=== PATIENT | female | born 1930 | race African-American/Black ===

== ENCOUNTER → 2017-07-07 | Outpatient (CLI) | payer OTHER, BC ==
[~2017-07-07] MED LIST: ADULT LOW DOSE81 MG PO; COUMADIN 2 MG TA2 M1 PO; FISH OIL 1,2001 EAC4 PO; FISHOIL; FOSAMAX 10 MG10 MG PO; FOSAMAX 70 MG T70 M1 PO; GABAPENTIN100 MG PO; GLUCOPHAGE1000 MG PO; HYDROCODONE-AP1 EA11 PO; HYDROCODONE-AP1 EAC6 PO; KLOR-CON 1010 MEQ PO; LASIX 20 MG TAB20 MG PO; LISINOPRIL10 MG PO; LISINOPRIL5 MG PO; LOPRESSOR25 PO; MACROBID 100 M100 M1 PO; METFORMIN; MIRALAX255 GM; NOLVADEX20 MG PO; NORCO 5-325 TA1 EACH PO; NORVASC 5 MG TAB5 MG PO; OXYCODONE HCL5 M1 PO; PERCOCET; PERCOCET 5-3251 EACH PO; POTASSIUM CL 225 MEQ PO; POTASSIUM20 PO; ROBAXIN 750 MG750 M1 PO
== END ==
LOC: RAD 15:43
DX: I51.7 Cardiomegaly (principal); J98.11 Atelectasis

== ENCOUNTER → 2017-12-01 | Outpatient (CLI) | payer OTHER, BC ==
[~2017-12-01] MED LIST changes: +BREO ELLIPTA 21 EACH INH; +DICLOFENAC POTA50 MG PO; +NEURONTIN300 MG PO; +TYLENOL EXTRA500 MG PO; +VITAMIN D1000 UNI1 PO
== END ==
LOC: CAT 09:50
DX: J45.30 Mild persistent asthma, uncomplicated (principal); I25.10 Atherosclerotic heart disease of native coronary artery without angina pectoris; J47.9 Bronchiectasis, uncomplicated; R91.8 Other nonspecific abnormal finding of lung field; J84.10 Pulmonary fibrosis, unspecified; J98.4 Other disorders of lung

== ENCOUNTER → 2018-03-24 | Outpatient (CLI) | payer OTHER, BC ==
[~2018-03-24] VITALS: Ht 157.5 cm; Wt 74.4 kg
[~2018-03-24] MED LIST changes: -DICLOFENAC POTA50 MG PO; -TYLENOL EXTRA500 MG PO
--- NOTE | ~2018-03-24 | HPC ---
[facility] [place] [address] PAIN MANAGEMENT CONSULTATION Name: RICHIE HINTON [facility] [id number] Admission: 03/24/18 Attend Phys: Erasto Baker DO Discharge: Date of : [birth year] Report #: [id number] THIS REPORT FOR: //name// CC: Erasto Dow MD DATE OF SERVICE: 03/24/2018 REFERRING PHYSICIAN: Diego Dow MD CHIEF COMPLAINT: Low back pain, bilateral lower extremity pain with paresthesias. HISTORY OF PRESENT ILLNESS: As you know, the patient is a very pleasant 87-year-old female who has had a longstanding history of low back pain, bilateral lower extremity pain with paresthesias. The patient states pain began in 2015 and has progressively worsened. The patient states that she is "just been putting up with it." The patient states over a period of time her pain become intense enough that she discussed options of treatment with Dr. Dow, her primary care physician. The patient trialed conservative medical therapy, but was noting no improvement in symptoms. She was subsequently sent for MRI of the lumbar spine, which showed severe spinal stenosis at L3-L4 and multiple changes throughout the lumbar spine typical for a 87-year-old female. Due to the lack of improvement with conservative treatment, the patient was referred to our clinic to discuss options for more aggressive therapy such as epidural injections and more aggressive medication treatment options. The patient denies any specific injury or trauma that may have led to symptom development and progression. The patient today describes pain as periodic, she uses descriptors of aching, pulling, throbbing, numbness and tingling. She places current pain score 9/10, daily average at 10/10, the worst pain has been is 10/10. The patient states that certain activities exacerbates symptoms, but not consistently. She indicates pain improvement with nothing to date. She has been referred to our service to discuss treatment options for lumbar radicular symptoms involving mainly the right lower extremity, but intermittently on the left. PAST MEDICAL HISTORY: 1. Diabetes mellitus type 2. 2. Hypertension. 3. Hypokalemia. 4. Asthma. 5. Breast cancer. 6. Osteoarthritis. [facility] [address] [place] [address] PAIN MANAGEMENT CONSULTATION Name: RICHIE HINTON Room #: REG [facility]#: [id number] Admission: 03/24/18 Attend Phys: Erasto Baker DO Discharge: Date of : [birth year] Report #: [id number] PAST SURGICAL HISTORY: 1. Mastectomy. 2. Right knee surgery. 3. Polypectomies from the colon. SOCIAL HISTORY: The patient denies tobacco, alcohol, IV or illicit drug use. She has been retired over 20 years. She is unaccompanied at today's visit. REVIEW OF SYSTEMS: Positive for wearing corrective eyewear, shortness of breath with walking or lying flat, frequent and recurrent coughs, asthma, wheezing, painful urination, nocturia, incontinence and dribbling to urine, low back pain, right lower extremity pain with paresthesias, intermittent left lower extremity pain with paresthesias, lymphedema of the left upper extremity, breast cancer, hypertension, seasonal allergies, asthma. All other review of systems negative per 12-point review of systems other than those listed in history of present illness. PAIN IMPACT SCORE: 32/70 indicating moderate interference of daily activities secondary to pain. ALLERGIES: No known drug allergies. CURRENT MEDICATIONS: Cholecalciferol 1000 units per day, Breo Ellipta 200/25 mcg inhaled twice a day, omega-3 fish oil 1 tab per day, potassium chloride 10 mEq p.o. daily, lisinopril 10 mg per day, amlodipine 5 mg per day, and aspirin 81 mg per day. IMAGING: MRI of the lumbar spine obtained 11/23/2014, shows L2-L3 with mild spinal stenosis. L3-L4, mild broad-based disk bulge, hypertrophic degenerative changes, severe L3-L4 spinal stenosis with anterior subluxation. There is anterior subluxation of L4 on L5, hypertrophic changes, apophyseal hypertrophy, mild central canal stenosis. L5-S1, mild left L5-S1 neural foraminal stenosis. PHYSICAL EXAMINATION: VITAL SIGNS: Blood pressure 169/68, pulse 81, respiratory rate 16 and unlabored, the patient is 100% on room air, height 5 feet 2 inches tall, weight 164 pounds, and BMI calculated 30. GENERAL: Well-developed, well-nourished, well-hydrated 87-year-old female, appearing her stated age, she is placing current pain score no greater 9/10. HEENT: Normocephalic, atraumatic. Pupils are equal, round, and reactive to light. Extraocular muscles are intact. Sclerae are nonicteric without injection. NEUROLOGIC: Cranial nerves 2-12 are grossly intact. Speech is fluent. The patient deemed a good historian. LUNGS: Clear. No wheezes, rhonchi, or rales. CARDIOVASCULAR: Regular. No appreciable gallop or rub. [address] [address] PAIN MANAGEMENT CONSULTATION Name: RICHIE HINTON Room #: REG [facility]#: [id number] Admission: 03/24/18 Attend Phys: Erasto Baker DO Discharge: Date of : 07[birth year] Report #: [id number] ABDOMEN: Soft, obese, nontender, nondistended, normoactive bowel sounds. EXTREMITIES: Show no clubbing, no cyanosis. There is noted lymphedema of the left upper extremity. Lower extremities, no edema. MUSCULOSKELETAL: Lower extremity strength appears equal and symmetrical 5/5, intact to light touch from L1 through S2 dermatomes. Deep tendinous reflexes are symmetrical, 2+/4 patella and Achilles. Ankle clonus negative. Babinski is negative. Seated straight leg raising negative. Supine straight leg raising mildly positive left. Gait antalgic favoring right lower extremity over left. This is mild in nature. Lumbar provocation testing is met with increased pain, mild restriction of motion. ASSESSMENT: 1. Symptomatic lumbar radiculopathy. 2. Severe and likely progressed spinal stenosis of lumbar spine. 3. Displacement of lumbar intervertebral disk with radiculopathy. 4. Lumbosacral spondylosis with radiculopathy. 5. Spondylolisthesis of L4 on L5. 6. Neural foraminal stenosis. 7. Facet arthropathy of the lumbar spine. 8. Chronic intractable pain. PLAN: 1. Based on today's physical exam, the history the patient provides, the description the patient uses in regards to pain as well as the location of her symptoms likely source of the patient's pain is a lumbar radiculopathy. The patient comes to us today with MRI that is from 2014, which shows fairly significant spinal stenosis at L3-L4. Her symptoms do correlate to the L3-L4 level given the distribution of symptoms along the anterior thigh on the right side. There is a likelihood that this pathology has progressed as again this image is nearly 3 years old. The patient and I discussed at length treatment options for the findings in 2015 imaging that have likely progressed, the following was discussed with the patient in detail. 2. We discussed physical therapy, stretching exercise, and core strengthening as a way to stabilize the axial back and improve symptom presentation. We discussed medication management adding neuropathic pain medication to try to improve the paresthesias she is experiencing in the right lower extremity. We discussed epidural injections under fluoroscopic guidance as a more aggressive treatment option to treat back and right lower extremity symptoms. We discussed ultimately surgical options given the extent of spinal stenosis noted in 2015 imaging. After a very long discussion with the patient taking over 27 minutes of time, the patient chose to begin with medication management. 3. The patient will be started on gabapentin, we will initiate the dose at 300 mg p.o. at bedtime, continue for 5 nights, then increase to 2 tabs p.o. at bedtime for 5 nights, then 3 tabs p.o. at bedtime for 5 nights, then 1 tab p.o. q.a.m. and 3 tabs p.o. at bedtime. She was given #120 tablets, advised to watch for side effects of somnolence, decreased mental acuity, [place] [address] PAIN MANAGEMENT CONSULTATION Name: RICHIE HINTON [facility] [id number] Admission: 03/24/18 Attend Phys: Erasto Baker DO Discharge: Date of : 07/[birth year] Report #: [id number] confusion while escalating dose of therapy. If she reaches an efficacious level of medication, she is to stabilize at that dose without further escalation; any side effects noted, she is to contact our clinic after reducing the dose back to the dose prior to the side effects, continue that dose and contact our clinic for further instructions. 4. The patient and I did discuss the possibility of having her undergo a new MRI, I would only request a new MRI if the patient was choosing to look towards more aggressive options such as surgery. The findings on her MRI are significant enough that there is a strong likelihood they have progressed to some degree, but I am not confident that there has been a major change in her presentation since that imaging of 2014. If a change does occur or distribution is discordant with the findings from this MRI, I would recommend further imaging. 5. The patient will return to our clinic in approximately 3 weeks, this will give the patient a chance to escalate the dose of gabapentin in hopes of improving neuropathic symptoms. I will discuss the efficacy of the medication at that visit and more aggressive treatments if necessary. 6. We wish to thank Dr. Dow for the referral of the patient to our clinic, we will keep you apprised of her response to treatment as we address her lumbar radicular symptoms. Again, we wish to thank you for the opportunity to see this patient in consultation. <ELECTRONICALLY SIGNED> By: Erasto Baker DO 03/31/18 [id number] Erasto Baker DO /nt
[2018-03-24 10:47] VITALS: BP 169/68
== END ==
LOC: PAIN 06:43
DX: M47.27 Other spondylosis with radiculopathy, lumbosacral region (principal); E11.9 Type 2 diabetes mellitus without complications; I10 Essential (primary) hypertension; J45.909 Unspecified asthma, uncomplicated; M19.90 Unspecified osteoarthritis, unspecified site; Z85.3 Personal history of malignant neoplasm of breast

== ENCOUNTER → 2018-04-14 | Outpatient (CLI) | payer OTHER, BC ==
[~2018-04-14] VITALS: Ht 157.5 cm; Wt 74.2 kg
--- NOTE | ~2018-04-14 | HPC ---
[facility] [address] [place] [address] PAIN MANAGEMENT CONSULTATION Name: RICHIE HINTON Room #: REG [facility]#: [id number] Admission: 04/14/18 Attend Phys: Erasto Baker DO Discharge: Date of : [birth year] Report #: [id number] THIS REPORT FOR: //name// CC: Erasto Dow MD DATE OF SERVICE: 04/14/2018 REFERRING PHYSICIAN: Diego Dow M.D. CHIEF COMPLAINT: Low back pain, bilateral lower extremity pain with paresthesias. HISTORY OF PRESENT ILLNESS: As you know, the patient is a very pleasant 87-year-old female who returns today in followup visit for first in a series of epidural injections. The patient reports pain at a level of 10/10, states her pain is aching, pulling and throbbing in sensation, exacerbated with walking, prolonged sitting and improves with repositioning. She returns to undergo the first in a series of epidural injections in hopes of improving pain. As you are aware, the patient shows severe spinal stenosis at L3-L4 with multiple changes throughout the lumbar spine, typical for 87-year-old females. To address the patient's spinal stenosis at the L3 level, she was provided today's appointment to try an epidural injection. She denies any changes in medical issues since our last visit. No new injury and no new trauma. ALLERGIES: No known drug allergies. CURRENT MEDICATIONS: Cholecalciferol, Breo-Ellipta, omega 3 fish oil, potassium chloride, lisinopril, amlodipine and aspirin. SOCIAL HISTORY: The patient denies tobacco, alcohol, IV or illicit drug use. She is retired over 20 years. She is unaccompanied today. IMAGING DATA: No new imaging available. PQRS: The patient has osteoarthritis of the knees bilaterally. She is not a fall risk, has not had a fall in the last 3 months. She is not on blood thinner. She is treated for hypertension. She is not on opioids for any length of time. She places of pain impact score functional assessment tool of 32/70, moderate interference. Pain intensity today 10/10. PHYSICAL EXAMINATION: VITAL SIGNS: Blood pressure 151/69, pulse 83 and respiratory rate 20 and unlabored. The patient is 100% on room air. Height 5 feet 2 inches tall, weight 163.6 pounds and BMI calculated 29.9. [address] [address] PAIN MANAGEMENT CONSULTATION Name: RICHIE HINTON Room #: REG [facility]#: [id number] Admission: 04/14/18 Attend Phys: Eratso Baker DO Discharge: Date of : 07/[birth year] Report #: [id number] GENERAL: Well-developed, well-nourished, well-hydrated 87-year-old female appearing her stated age, pain is rated at 10/10. HEENT: Normocephalic and atraumatic. Pupils equal, round and reactive to light. Extraocular muscles are intact. EXTREMITIES: Show no clubbing and no cyanosis. There is noted left upper extremity lymphedema. MUSCULOSKELETAL: Lower extremity strength equal and symmetrical 5/5, intact to light touch from L1 through S2 dermatomes. Seated straight leg raising negative. Supine straight leg raising mildly positive to left. ASSESSMENT: 1. Symptomatic lumbar radiculopathy. 2. Severe spinal stenosis of the lumbar spine. 3. Displacement of the lumbar intervertebral disk with radiculopathy. 4. Lumbosacral spondylosis with radiculopathy. 5. Spondylolisthesis of L4 on L5. 6. Neural foraminal stenosis of the lumbar spine. 7. Facet arthropathy of the lumbar spine. 8. Chronic intractable pain. PLAN: 1. The patient returns today in followup visit to undergo the first in a series of epidural injections. The patient was advised of the risks and the benefits of this procedure. These risks include but are not necessarily limited to bleeding, bruising, infection, worsening pain, no relief of pain, also risk of temporary or permanent muscle weakness, temporary or permanent nerve damage, possible paralysis and . The patient states understood and wished to proceed. 2. No medication changes made at today's visit. The patient to continue current medical therapy as previously prescribed. 3. The patient to return to our clinic in 1 month to undergo the next in a series of epidural injections under fluoroscopic guidance. PROCEDURE NOTE DESCRIPTION OF PROCEDURE: L5-S1 right paramedian epidural steroid injection under fluoroscopic guidance. This is the first procedure of the first series that the patient is undergoing. After obtaining written consent, the patient was taken back to the fluoroscopy suite, placed in a prone position with pillow under the abdomen to decrease lumbar lordosis. The skin overlying the lumbosacral area was then prepped and draped in aseptic fashion. The L5-S1 vertebral interspace was then identified by AP fluoroscopy. The skin and subcutaneous tissue overlying the target site of injection was anesthetized with 3 mL 1% lidocaine. [facility] [address] [place] [address] PAIN MANAGEMENT CONSULTATION Name: RICHIE HINTON Room #: REG [facility]#: [id number] Admission: 04/14/18 Attend Phys: Erasto Baker DO Discharge: Date of : 07/26/[birth year] Report #: [id number] A 20-gauge 3-1/2 inch Tuohy needle was then advanced under fluoroscopic guidance towards the epidural space using a right paramedian approach. The epidural space was identified using loss of resistance to air technique. After negative aspiration for heme or cerebrospinal fluid, a total of 1 mL of Omnipaque was injected. A lumbar epidurogram was confirmed using both AP and lateral fluoroscopy. After negative aspiration for heme or cerebrospinal fluid, 5 mL of a solution containing 2 mL 40 mg per mL, 80 mg total triamcinolone, 3 mL lidocaine 1% was injected in increments. Contrast spread was noted posterior epidural space. The needle was then retracted approximately half way and needle tract flushed with 1 mL of 1% lidocaine. Needle was then removed. There were no apparent sensory or motor deficits in the lower extremity following the procedure. A sterile bandage was placed over the injection site. The heart rate, pulse, oximetry and blood pressure were continuously monitored after the procedure. There were no apparent complications. The patient tolerated the procedure well and was carefully escorted to the recovery room in stable condition. There were no apparent complications. After meeting discharge criteria, the patient was then discharged home. <ELECTRONICALLY SIGNED> By: Erasto Baker DO 04/15/18 [id number] Erasto Baker DO /nt
[2018-04-14 09:02] VITALS: BP 151/69
== END | disposition home or self-care (01) ==
LOC: PAIN 07:29
DX: M51.16 Intervertebral disc disorders with radiculopathy, lumbar region (principal); G89.29 Other chronic pain; M48.061 Spinal stenosis, lumbar region without neurogenic claudication; M47.27 Other spondylosis with radiculopathy, lumbosacral region; M43.16 Spondylolisthesis, lumbar region; M46.96 Unspecified inflammatory spondylopathy, lumbar region; Z79.899 Other long term (current) drug therapy; Z79.82 Long term (current) use of aspirin; Z87.891 Personal history of nicotine dependence

== ENCOUNTER → 2018-04-28 | Outpatient (CLI) | payer OTHER, BC ==
[~2018-04-28] VITALS: Ht 157.5 cm; Wt 73.2 kg
[~2018-04-28] MED LIST changes: +DICLOFENAC POTA50 MG PO; +TYLENOL EXTRA500 MG PO
[2018-04-28 09:16] VITALS: BP 160/71
== END ==
LOC: PAIN 06:36
DX: Z09 Encounter for follow-up examination after completed treatment for conditions other than malignant neoplasm (principal); M17.0 Bilateral primary osteoarthritis of knee; I10 Essential (primary) hypertension; R42 Dizziness and giddiness